=== PATIENT | male | born 1970 | race Caucasian/White ===

== ENCOUNTER 2016-06-24 19:01 | Emergency (ER) | payer MEDICAID ==
[~2016-06-24] VITALS: Ht 182.9 cm; Wt 95.3 kg
[~2016-06-24 19:01] MED LIST: BUPR-51 PO; CLON2TAB PO; LEVO125T PO
--- NOTE | 2016-06-24 19:04 | NUR ---
PT BIB SELF C/O CONGESTION X 5 DAYS. DENIES ANY PAIN . PT COUGHING OUT PHLEGM. PLACED ON MONITOR. VSS. AWAITING MD ORDER
--- NOTE | 2016-06-24 19:10 | NUR ---
AT BEDSIDE FOR EVAL
[2016-06-24] MEDS ORDERED: predniSONE 20 MG TABLET ONE (19:29)
[2016-06-24] MEDS ORDERED: AZITHROMYCIN 250 MG TABLET ONE (19:29)
[2016-06-24] MEDS ORDERED: ALBUTEROL FS 2.5 MG/3 ML VIAL.NEB NEB ONE (19:30)
[2016-06-24] MEDS ORDERED: AZITHROMYCIN 250 MG TABLET PO ONE (19:30)
[2016-06-24] MEDS ORDERED: IPRATROPIUM NEB FS 0.5 MG/2.5 ML AMPUL.NEB NEB ONE (19:30)
[2016-06-24] MEDS ORDERED: predniSONE 20 MG TABLET PO ONE (19:30)
--- NOTE | 2016-06-24 19:35 | NUR ---
XRAY AT BEDSIDE
--- NOTE | 2016-06-24 19:35 | NUR ---
CALLED RT FOR BREATHING TREATMENT
[2016-06-24] MEDS ORDERED: IPRATROPIUM NEB FS 0.5 MG/2.5 ML AMPUL.NEB ONE (20:00)
[2016-06-24] MEDS ORDERED: ALBUTEROL FS 2.5 MG/3 ML VIAL.NEB ONE (20:00)
--- NOTE | 2016-06-24 20:08 | NUR ---
rt at bedside
--- NOTE | 2016-06-24 20:43 | NUR ---
Patient discharged to home in stable condition. Written and verbal after care instructions given. Patient verbalizes understanding of instruction.
[2016-06-24 20:44] VITALS: BP 128/68
== END 2016-06-24 20:44 | disposition home or self-care (01) ==
LOC: ER 19:04
DX: H66.93 Otitis media, unspecified, bilateral (principal); J32.9 Chronic sinusitis, unspecified; F41.9 Anxiety disorder, unspecified; E03.9 Hypothyroidism, unspecified; J45.909 Unspecified asthma, uncomplicated; R05 Cough; F17.200 Nicotine dependence, unspecified, uncomplicated; F11.10 Opioid abuse, uncomplicated
CPT/HCPCS: 71010; 94640; 99283; A4606; J7512; Z7610

== ENCOUNTER 2016-08-01 02:19 | Emergency (ER) | payer MEDICAID ==
[~2016-08-01] VITALS: Ht 182.9 cm; Wt 97.5 kg
[2016-08-01 02:46] VITALS: BP 119/74
== END 2016-08-01 03:38 | disposition home or self-care (01) ==
LOC: ER 02:21
DX: J32.9 Chronic sinusitis, unspecified (principal); E03.9 Hypothyroidism, unspecified; F41.9 Anxiety disorder, unspecified; F17.210 Nicotine dependence, cigarettes, uncomplicated
CPT/HCPCS: 99283; A4606; Z7610

== ENCOUNTER 2017-01-14 07:37 | Emergency (ER) | payer MEDICAID ==
[~2017-01-14] VITALS: Ht 182.9 cm; Wt 104.3 kg
[2017-01-14 07:37] VITALS: BP 147/88
== END 2017-01-14 08:03 | disposition home or self-care (01) ==
LOC: ER 07:41
DX: L03.116 Cellulitis of left lower limb (principal); F41.9 Anxiety disorder, unspecified; E03.9 Hypothyroidism, unspecified; F17.200 Nicotine dependence, unspecified, uncomplicated; F15.10 Other stimulant abuse, uncomplicated; F14.10 Cocaine abuse, uncomplicated; F11.10 Opioid abuse, uncomplicated
CPT/HCPCS: 99283; A4606; Z7610

== ENCOUNTER 2017-01-26 09:00 | Emergency (ER) | payer MEDICAID ==
[~2017-01-26] VITALS: Ht 182.9 cm; Wt 104.3 kg
[2017-01-26 09:08] VITALS: BP 158/88
== END 2017-01-26 09:28 | disposition home or self-care (01) ==
LOC: ER 09:02
DX: L02.31 Cutaneous abscess of buttock (principal); E03.9 Hypothyroidism, unspecified; F19.90 Other psychoactive substance use, unspecified, uncomplicated; F41.9 Anxiety disorder, unspecified; F17.200 Nicotine dependence, unspecified, uncomplicated
CPT/HCPCS: 99283; A4606; Z7610

== ENCOUNTER 2017-03-16 11:39 | Emergency (ER) | payer BC, MEDICAID ==
[~2017-03-16] VITALS: Ht 182.9 cm; Wt 99.8 kg
[2017-03-16 11:49] VITALS: BP 129/69
[2017-03-16] MEDS ORDERED: SULFAMETH/TRIMETH 800/160 MG 1 UDTAB TABLET PO ONE ×2 (12:43→13:00)
[2017-03-16] MEDS ORDERED: CEPHALEXIN MONOHYDRATE 500 MG CAPSULE PO ONE ×2 (12:43→13:00)
== END 2017-03-16 12:51 | disposition home or self-care (01) ==
LOC: ER 11:48
DX: L03.317 Cellulitis of buttock (principal); F41.9 Anxiety disorder, unspecified; E03.9 Hypothyroidism, unspecified; F17.200 Nicotine dependence, unspecified, uncomplicated
CPT/HCPCS: A4606; Z7610

== ENCOUNTER 2017-11-26 17:27 | Emergency (ER) | payer BC, MEDICAID ==
[~2017-11-26] VITALS: Ht 182.9 cm; Wt 99.8 kg
[2017-11-26 17:45] VITALS: BP 141/90
[2017-11-26] MEDS ORDERED: LIDOCAINE 1% INJ 50 ML MDV IJ ONE (18:30)
== END 2017-11-26 18:57 | disposition home or self-care (01) ==
LOC: ER 17:29
DX: L02.413 Cutaneous abscess of right upper limb (principal); L03.113 Cellulitis of right upper limb; G40.909 Epilepsy, unspecified, not intractable, without status epilepticus; E03.9 Hypothyroidism, unspecified; F41.9 Anxiety disorder, unspecified; F17.200 Nicotine dependence, unspecified, uncomplicated; F14.10 Cocaine abuse, uncomplicated; F15.10 Other stimulant abuse, uncomplicated; F11.10 Opioid abuse, uncomplicated; Z86.19 Personal history of other infectious and parasitic diseases
CPT/HCPCS: 10060; 87070; 99283; 99406; A4606; A6402 ×2; A6407; Z7610

== ENCOUNTER 2018-03-04 17:02 | Emergency (ER) | payer BC ==
[~2018-03-04] VITALS: Ht 182.9 cm; Wt 102.1 kg
[2018-03-04 17:02] VITALS: BP 138/77
[2018-03-04] MEDS ORDERED: IV NS 0.9% 1,000 ML BAG IV ONE (17:30)
[2018-03-04] MEDS ORDERED: IBUPROFEN 600 MG TABLET PO ONE ×2 (17:30→18:20)
[2018-03-04] MEDS ORDERED: SULFAMETH/TRIMETH 800/160 MG 1 UDTAB TABLET PO ONE ×2 (18:30→18:40)
[2018-03-04] MEDS ORDERED: CEPHALEXIN MONOHYDRATE 500 MG CAPSULE PO ONE ×2 (18:30→18:40)
== END 2018-03-04 18:49 | disposition home or self-care (01) ==
LOC: ER 17:05
DX: L03.116 Cellulitis of left lower limb (principal); R56.9 Unspecified convulsions; F41.9 Anxiety disorder, unspecified; E03.9 Hypothyroidism, unspecified; F17.200 Nicotine dependence, unspecified, uncomplicated; F14.10 Cocaine abuse, uncomplicated; F11.10 Opioid abuse, uncomplicated; F15.10 Other stimulant abuse, uncomplicated
CPT/HCPCS: A4606; A6403; Z7610

== ENCOUNTER 2018-05-09 23:51 | Emergency (ER) | payer BC ==
[~2018-05-09] VITALS: Ht 180.3 cm; Wt 104.3 kg
[2018-05-10 00:41] VITALS: BP 117/75
--- NOTE | 2018-05-10 02:02 | NUR ---
PT BIBS. COMP OF "I THINK I WAS BIT BY A SPIDER ON MY ARMS" R+L EXTREMITY SWELLING NOTED. AOX4. -SOB. -N/V -ACUTE DISTRESS AT THIS TIME.
== END 2018-05-10 02:22 | disposition home or self-care (01) ==
LOC: ER 23:51
DX: L03.114 Cellulitis of left upper limb (principal); F11.10 Opioid abuse, uncomplicated; E03.9 Hypothyroidism, unspecified; R56.9 Unspecified convulsions; F41.9 Anxiety disorder, unspecified; F17.200 Nicotine dependence, unspecified, uncomplicated; F14.10 Cocaine abuse, uncomplicated; F15.10 Other stimulant abuse, uncomplicated
CPT/HCPCS: 99283; A4606

== ENCOUNTER → 2018-10-19 | Emergency (ER) | payer BC ==
--- NOTE | 2018-10-19 21:22 | NUR ---
CALLED PT IN WAITING ROOM. NO RESPONSE
--- NOTE | 2018-10-19 22:51 | NUR ---
CALLED PT IN WAITING ROOM. NO RESPONSE. WILL FOLLOW UP.
--- NOTE | 2018-10-19 23:23 | NUR ---
CALLED PT IN WAITING ROOM. NO RESPON.SE
== END | disposition left against medical advice (07) ==
LOC: ER 20:02
DX: Z53.21 Procedure and treatment not carried out due to patient leaving prior to being seen by health care provider (principal)

== ENCOUNTER 2018-11-26 03:02 | Emergency (ER) | payer BC ==
[~2018-11-26] VITALS: Ht 182.9 cm; Wt 99.8 kg
--- NOTE | 2018-11-26 03:04 | NUR ---
PT CALLED FOR TRIAGE, NO ANSWER.
--- NOTE | 2018-11-26 04:20 | NUR ---
TO BED 4 AMBULATORY C/O R DELTOID ABSCESS X2 DAYS S/P HEROIN. PT AAOX4 NO ACUTE DISTRESS NOTED, RESP EVEN AND UNLABORED. PENDING ER MD NAM.
--- NOTE | 2018-11-26 04:57 | NUR ---
ANA KIM AT BEDSIDE FOR I&D.
[2018-11-26] MEDS ORDERED: LIDOCAINE 1%-EPI 1:100,000 20 ML VIAL ONE (05:00)
[2018-11-26] MEDS ORDERED: SULFAMETH/TRIMETH 800/160 MG 1 UDTAB TABLET ONE (05:07)
[2018-11-26] MEDS ORDERED: CEPHALEXIN MONOHYDRATE 500 MG CAPSULE PO ONE ×2 (05:07→05:30)
[2018-11-26 05:25] VITALS: BP 127/68
--- NOTE | 2018-11-26 05:25 | NUR ---
Patient discharged to home in stable condition. Written and verbal after care instructions given. Patient verbalizes understanding of instruction. ambulatory with a steady gait
[2018-11-26] MEDS ORDERED: SULFAMETH/TRIMETH 800/160 MG 1 UDTAB TABLET PO ONE (05:30)
[2018-11-26] MEDS ORDERED: LIDOCAINE 1%-EPI 1:100,000 50 ML VIAL IJ ONE (05:30)
== END 2018-11-26 05:26 | disposition home or self-care (01) ==
LOC: ER 03:02
DX: L02.413 Cutaneous abscess of right upper limb (principal); F41.9 Anxiety disorder, unspecified; E03.9 Hypothyroidism, unspecified; F17.200 Nicotine dependence, unspecified, uncomplicated; Z79.899 Other long term (current) drug therapy
CPT/HCPCS: 10060; 99283; A6407; J3490 ×2

== ENCOUNTER 2018-11-28 04:12 | Emergency (ER) | payer BC ==
[~2018-11-28] VITALS: Ht 185.4 cm; Wt 98.9 kg
[~2018-11-28 04:12] MED LIST changes: -BUPR-51 PO
[2018-11-28 04:19] VITALS: BP 121/78
== END 2018-11-28 04:39 | disposition home or self-care (01) ==
LOC: ER 04:14
DX: L03.113 Cellulitis of right upper limb (principal); R56.9 Unspecified convulsions; F41.9 Anxiety disorder, unspecified; E03.9 Hypothyroidism, unspecified; F17.200 Nicotine dependence, unspecified, uncomplicated; F14.10 Cocaine abuse, uncomplicated; F15.10 Other stimulant abuse, uncomplicated; F11.10 Opioid abuse, uncomplicated

== ENCOUNTER 2019-01-05 20:53 | Emergency (ER) | payer BC ==
[~2019-01-05] VITALS: Ht 181.6 cm; Wt 102.1 kg
[2019-01-05 21:28] VITALS: BP 118/72
[2019-01-05] MEDS ORDERED: LIDOCAINE 1%-EPI 1:100,000 20 ML VIAL ONE (22:10)
[2019-01-05] MEDS ORDERED: LIDOCAINE 1%-EPI 1:100,000 20 ML VIAL TP ONE (22:30)
[2019-01-05] MEDS ORDERED: CLINDAMYCIN HCL 150 MG CAPSULE PO ONE ×2 (22:58→23:00)
--- NOTE | 2019-01-05 23:06 | NUR ---
Patient discharged to home in stable condition. Written and verbal after care instructions given. Patient verbalizes understanding of instruction. Pt ambulatory with a steady gait
== END 2019-01-05 23:07 | disposition home or self-care (01) ==
LOC: ER 20:56
DX: L02.415 Cutaneous abscess of right lower limb (principal); L03.115 Cellulitis of right lower limb; F19.10 Other psychoactive substance abuse, uncomplicated; F41.9 Anxiety disorder, unspecified; E03.9 Hypothyroidism, unspecified; F17.200 Nicotine dependence, unspecified, uncomplicated; Z79.899 Other long term (current) drug therapy
CPT/HCPCS: 10060; 87070; 99283; A6253; A6403; A6407; J3490

== ENCOUNTER 2019-03-31 18:37 | Emergency (ER) | payer BC ==
[~2019-03-31] VITALS: Ht 180.3 cm; Wt 112.0 kg
[2019-03-31 18:58] VITALS: BP 116/82
--- NOTE | 2019-03-31 18:59 | NUR ---
PT AAOX4. AMBULATORY. C/O L SIDE BUTTOCK AREA PAIN/SWELLING X 1 WEEK. WAS AT AN URGENT CARE WHICH WAS PRESCRIBED ANTIBIOTICS, TOOK ANTIBIOTICS, NO RELIEF. VSS.
--- NOTE | 2019-03-31 19:42 | NUR ---
PT STATED "NO ONE CAN GET AN IV STARTED ON ME" MD AWARE.
[2019-03-31] MEDS ORDERED: IV NS 0.9% 1,000 ML BAG IV ONE (20:00)
[2019-03-31] MEDS ORDERED: HYDROMORPHONE 1 MG/1 ML DISP.SYRIN IV ONE ×2 (20:00→22:00)
--- NOTE | 2019-03-31 20:06 | NUR ---
MID LINE BEING INSERTED.
--- NOTE | 2019-03-31 20:15 | NUR ---
R BRACHIAL 18G MID LINE.
[2019-03-31] MEDS ORDERED: HYDROMORPHONE 1 MG/1 ML DISP.SYRIN ONE ×2 (20:16→21:58)
[2019-03-31 20:28] LABS: BASOPHILS # (AUTO) 0.1 /CMM (0.0-0.2); BASOPHILS % (AUTO) 0.7 % (0.0-2.0); EOSINOPHILS % (AUTO) 2.8 % (0.0-6.0); HEMATOCRIT 33 % (39-51); HEMOGLOBIN 10.4 g/dL (13.5-17.5); LYMPHOCYTES # (AUTO) 0.9 /CMM (0.8-4.8); MEAN CORPUSCULAR HGB CONC 32 g/dl (31.0-36.0); MEAN CORPUSCULAR VOLUME 81 fL (80-96); MONOCYTES # (AUTO) 0.8 /CMM (0.1-1.30); MONOCYTES % (AUTO) 8.9 % (2.0-12.0); NEUTROPHILS # (AUTO) 7.4 /CMM (1.8-8.9); NEUTROPHILS % (AUTO) 77.6 % (43.0-81.0); PLATELET COUNT (AUTO) 305 /CMM (150-450); RED BLOOD CELL COUNT(AUTO) 4.02 MIL/uL (4.5-6.0); WHITE BLOOD COUNT (AUTO) 9.5 K/uL (4.3-11.0)
[2019-03-31 20:52] LABS: ALBUMIN 2.2 g/dL (3.4-5.0); BILIRUBIN,DIRECT 0.1 mg/dL (0.0-0.2); BILIRUBIN,TOTAL 0.4 mg/dL (0.2-1.0); CALCIUM, SERUM 8.1 mg/dL (8.5-10.1); CREATININE 0.9 mg/dL (0.6-1.3); POTASSIUM 3.9 mmol/L (3.5-5.1); TOTAL PROTEIN, SERUM 7.2 g/dL (6.4-8.2)
[2019-03-31] MEDS ORDERED: CT SWABBABLE VALVE TRANS SET 1 EA INFUS.SET MC ONE (21:06)
[2019-03-31] MEDS ORDERED: IOHEXOL-300 100 ML VIAL IV ONE (21:06)
[2019-03-31] MEDS ORDERED: IV NS 0.9% 250 ML IV ONE (21:07)
--- NOTE | 2019-03-31 21:15 | NUR ---
PT BROUGHT TO CT
--- NOTE | 2019-03-31 22:27 | NUR ---
TURNED IN MOVE SHEET, AWAITING CALL FROM INSURANCE REP. PER CAPPED TO [place] [facility]
[2019-03-31] MEDS ORDERED: VANCOMYCIN HCL 1 GM in IV D5W 260 ML IV ONE (22:30)
[2019-03-31] MEDS ORDERED: VANCOMYCIN 1 GM VIAL ONE (22:41)
--- NOTE | 2019-04-01 00:42 | NUR ---
PT ACCEPTED TO [facility] BY DR GOODE. # FOR REPORT [phone]
--- NOTE | 2019-04-01 00:51 | NUR ---
ETA [id number]
--- NOTE | 2019-04-01 00:51 | NUR ---
brenna eta is 01:15. trip # [id number], per AJ
--- NOTE | 2019-04-01 01:02 | NUR ---
REPORT GIVEN TO VERNON LIN FOR AMBER
--- NOTE | 2019-04-01 01:39 | NUR ---
REPORT GIVEN TO MOHAN SIMON UN[address]
== END 2019-04-01 02:09 | disposition short-term general hospital (02) ==
LOC: ER 18:43
DX: L02.31 Cutaneous abscess of buttock (principal); L03.317 Cellulitis of buttock; M79.5 Residual foreign body in soft tissue; F19.10 Other psychoactive substance abuse, uncomplicated; F11.10 Opioid abuse, uncomplicated; D64.9 Anemia, unspecified; R56.9 Unspecified convulsions; E03.9 Hypothyroidism, unspecified; Z79.899 Other long term (current) drug therapy
CPT/HCPCS: 36415; 71045; 72193; 80048; 80076; 85025; 85730; 93005; 96365; 96366; 96375; 96376; 99285; J1170; J3370; J7030; J7050; J7060; Q9967; 36569

== ENCOUNTER 2019-10-12 15:02 | Emergency (ER) | payer BC ==
[~2019-10-12] VITALS: Ht 182.9 cm; Wt 106.6 kg
[2019-10-12 15:11] VITALS: BP 131/72
[2019-10-12] MEDS ORDERED: CT SWABBABLE VALVE TRANS SET 1 EA INFUS.SET MC ONE (15:34)
[2019-10-12] MEDS ORDERED: IOHEXOL-300 100 ML VIAL IV ONE (15:34)
[2019-10-12] MEDS ORDERED: IV NS 0.9% 250 ML IV ONE (15:34)
[2019-10-12] MEDS ORDERED: CEPH-570 PO (16:00)
[2019-10-12] MEDS ORDERED: LOSA25TA27 PO (16:00)
[2019-10-12] MEDS ORDERED: FURO40TA5 PO (16:00)
[2019-10-12] MEDS ORDERED: FERR325T23 PO (16:00)
[2019-10-12 16:07] LABS: BASOPHILS % (AUTO) 0.4 % (0.0-2.0); EOSINOPHILS % (AUTO) 0.3 % (0.0-6.0); HEMATOCRIT 34 % (39-51); HEMOGLOBIN 10.9 g/dL (13.5-17.5); LYMPHOCYTES % (AUTO) 10.2 % (20.0-44.0); MEAN CORPUSCULAR HGB CONC 32 g/dl (31.0-36.0); MEAN CORPUSCULAR VOLUME 80 fL (80-96); MONOCYTES # (AUTO) 0.4 /CMM (0.1-1.30); MONOCYTES % (AUTO) 4.3 % (2.0-12.0); NEUTROPHILS # (AUTO) 8.6 /CMM (1.8-8.9); NEUTROPHILS % (AUTO) 84.8 % (43.0-81.0); PLATELET COUNT (AUTO) 365 /CMM (150-450); RED BLOOD CELL COUNT(AUTO) 4.32 MIL/uL (4.5-6.0); WHITE BLOOD COUNT (AUTO) 10.1 K/uL (4.3-11.0)
[2019-10-12] MEDS: IV NS 0.9% 1,000 ML BAG IV ONE (16:07)
[2019-10-12] MEDS: VANCOMYCIN 1 GM in IV D5W 250 ML IV ONE (16:08)
[2019-10-12] MEDS: PIPERACILLIN /TAZOBACTAM 3.375 G in IV D5W 50 ML IV ONE (16:08)
--- NOTE | 2019-10-12 16:10 | NUR ---
PT C/O L HIP AREA CELLULITIS. AAOX4, VSS. RR EVEN & UNALBORED. DENIES CP, SOB, DIZZINESS, N/V/D AT THIS TIME. PT SEEN & EVAL'D BY DR. ZHANG. MEDICATED ORDERED, PT MARTA WELL. WILL CONT TO MONITOR.
[2019-10-12 16:39] LABS: CALCIUM, SERUM 8.9 mg/dL (8.5-10.1); CREATININE 1.2 mg/dL (0.6-1.3); POTASSIUM 3.9 mmol/L (3.5-5.1)
[2019-10-12 16:44] LABS: ALBUMIN 2.7 g/dL (3.4-5.0); BILIRUBIN,DIRECT 0.2 mg/dL (0.0-0.2); BILIRUBIN,TOTAL 0.5 mg/dL (0.2-1.0); TOTAL PROTEIN, SERUM 8.5 g/dL (6.4-8.2)
--- NOTE | 2019-10-12 18:19 | NUR ---
PT SIGNED AMA FORM. Patient discharged to home in stable condition. Written and verbal after care instructions given. Patient verbalizes understanding of instruction. IV removed. Catheter intact and site benign. Pressure and 4x4 applied to site. No bleeding noted.
== END 2019-10-12 18:21 | disposition left against medical advice (07) ==
LOC: ER 15:03
DX: L02.416 Cutaneous abscess of left lower limb (principal); L03.116 Cellulitis of left lower limb; R56.9 Unspecified convulsions; E03.9 Hypothyroidism, unspecified; Z53.9 Procedure and treatment not carried out, unspecified reason; Z98.890 Other specified postprocedural states
CPT/HCPCS: 36415; 73701; 80048; 80076; 83605; 85025; 85730; 87040 ×2; 96365; 96368; 99285; J2543; J3370; J7030; J7050; J7060; Q9967

== ENCOUNTER 2020-01-07 18:21 | Emergency (ER) | payer BC ==
[~2020-01-07] VITALS: Ht 185.4 cm; Wt 104.3 kg
[~2020-01-07 18:21] MED LIST changes: +CEPH-570 PO; +FERR325T23 PO; +FURO40TA5 PO; +LOSA25TA27 PO
[2020-01-07 18:55] VITALS: BP 135/81
== END 2020-01-07 19:31 | disposition home or self-care (01) ==
LOC: ER 18:24
DX: L03.113 Cellulitis of right upper limb (principal); K02.9 Dental caries, unspecified; F41.9 Anxiety disorder, unspecified; E03.9 Hypothyroidism, unspecified; F17.200 Nicotine dependence, unspecified, uncomplicated; Z79.899 Other long term (current) drug therapy; W57.XXXA Bitten or stung by nonvenomous insect and other nonvenomous arthropods, initial encounter; Y93.89 Activity, other specified; Y92.89 Other specified places as the place of occurrence of the external cause; Y99.8 Other external cause status

== ENCOUNTER 2020-09-26 02:44 | Emergency (ER) | payer MEDICAID ==
[~2020-09-26] VITALS: Ht 182.9 cm; Wt 83.9 kg
--- NOTE | 2020-09-26 02:55 | NUR ---
PATIENT BIBS FOR C/O WORSENING RIGHT LOWER TOOTH PAIN AND SWELLING X 1 WK. PATIENT A/O X 4, RR EVEN AND UNLABORED, NO SOB NOTED, PATIENT VSS. WILL CONTINUE TO MONITOR.
[2020-09-26] MEDS ORDERED: PENICILLIN G BENZATHINE 2.4 MMU/4 ML ML IM ONE ×2 (03:43→04:00)
[2020-09-26] MEDS ORDERED: HYDROCODONE/APAP 10/325MG TABLET ONE (03:43)
[2020-09-26] MEDS ORDERED: HYDROCODONE/APAP 10/325MG TABLET PO ONE (04:00)
--- NOTE | 2020-09-26 04:15 | NUR ---
Patient discharged to home in stable condition. Written and verbal after care instructions given. Patient verbalizes understanding of instruction.
[2020-09-26 04:51] VITALS: BP 136/72
== END 2020-09-26 04:52 | disposition home or self-care (01) ==
LOC: ER 02:44
DX: K08.89 Other specified disorders of teeth and supporting structures (principal); F17.210 Nicotine dependence, cigarettes, uncomplicated; I10 Essential (primary) hypertension; D64.9 Anemia, unspecified; F41.9 Anxiety disorder, unspecified; E03.9 Hypothyroidism, unspecified; Z79.899 Other long term (current) drug therapy
CPT/HCPCS: 96372; 99283; 99406; J0558

== ENCOUNTER 2020-09-29 01:02 | Emergency (ER) | payer MEDICAID ==
[~2020-09-29] VITALS: Ht 182.9 cm; Wt 83.9 kg
[2020-09-29 01:02] VITALS: BP 73/20
[2020-09-29] MEDS ORDERED: AMOX-430 PO (01:40)
[2020-09-29] MEDS ORDERED: KETOROLAC TROMETHAMINE INJ 30 MG/ML VIAL ONE (01:47)
--- NOTE | 2020-09-29 01:51 | NUR ---
Patient discharged to home in stable condition. Written and verbal after care instructions given. Patient verbalizes understanding of instruction.
[2020-09-29] MEDS: KETOROLAC TROMETHAMINE INJ 60 MG/2 ML VIAL IM ONE (01:55)
== END 2020-09-29 02:02 | disposition home or self-care (01) ==
LOC: ER 01:05
DX: K08.89 Other specified disorders of teeth and supporting structures (principal); I10 Essential (primary) hypertension; D64.9 Anemia, unspecified; F41.9 Anxiety disorder, unspecified; E03.9 Hypothyroidism, unspecified; F17.200 Nicotine dependence, unspecified, uncomplicated; Z79.899 Other long term (current) drug therapy
CPT/HCPCS: 96372; 99283; J1885

== ENCOUNTER 2021-03-20 03:31 | Emergency (ER) | payer MEDICAID ==
[~2021-03-20] VITALS: Ht 182.9 cm; Wt 83.9 kg
[~2021-03-20 03:31] MED LIST changes: +AMOX-430 PO
[2021-03-20 03:56] VITALS: BP 120/72
[2021-03-20] MEDS ORDERED: CLIN300C12 PO (04:02)
[2021-03-20] MEDS ORDERED: CLINDAMYCIN HCL 150 MG CAPSULE ONE (04:08)
[2021-03-20] MEDS ORDERED: CLINDAMYCIN HCL 150 MG CAPSULE PO ONE (04:30)
== END 2021-03-20 04:18 | disposition home or self-care (01) ==
LOC: ER 03:37
DX: L02.31 Cutaneous abscess of buttock (principal); I10 Essential (primary) hypertension; D64.9 Anemia, unspecified; E03.9 Hypothyroidism, unspecified; Z79.899 Other long term (current) drug therapy

== ENCOUNTER 2021-08-01 21:40 | Emergency (ER) | payer MEDICAID ==
[~2021-08-01] VITALS: Ht 182.9 cm; Wt 86.2 kg
[~2021-08-01 21:40] MED LIST changes: +CLIN300C12 PO
[2021-08-01 22:14] VITALS: BP 134/81
[2021-08-01] MEDS ORDERED: diphenhydrAMINE HCL 50 MG CAPSULE ONE (22:58)
[2021-08-01] MEDS ORDERED: diphenhydrAMINE HCL 25 MG CAPSULE PO ONE (23:00)
--- NOTE | 2021-08-01 23:08 | NUR ---
Patient discharged to home in stable condition. Written and verbal after care instructions given. Patient verbalizes understanding of instruction.
== END 2021-08-01 23:10 | disposition home or self-care (01) ==
LOC: ER 21:51
DX: S50.861A Insect bite (nonvenomous) of right forearm, initial encounter (principal); E86.0 Dehydration; F41.9 Anxiety disorder, unspecified; I10 Essential (primary) hypertension; D64.9 Anemia, unspecified; E03.9 Hypothyroidism, unspecified; Z79.899 Other long term (current) drug therapy; W57.XXXA Bitten or stung by nonvenomous insect and other nonvenomous arthropods, initial encounter; Y93.89 Activity, other specified; Y92.89 Other specified places as the place of occurrence of the external cause; Y99.8 Other external cause status
CPT/HCPCS: 99282; Q0163

== ENCOUNTER 2022-02-03 01:19 | Emergency (ER) | payer BC, MEDICAID ==
[~2022-02-03] VITALS: Ht 182.9 cm; Wt 81.2 kg
[2022-02-03 01:24] VITALS: BP 134/72
== END 2022-02-03 01:36 | disposition home or self-care (01) ==
LOC: ER 01:20
DX: Z48.00 Encounter for change or removal of nonsurgical wound dressing (principal); I10 Essential (primary) hypertension; E03.9 Hypothyroidism, unspecified; Z79.899 Other long term (current) drug therapy

== ENCOUNTER 2022-02-12 07:56 | Emergency (ER) | payer BC ==
[~2022-02-12] VITALS: Ht 182.9 cm; Wt 89.4 kg
--- NOTE | 2022-02-12 08:06 | NUR ---
BIBS W/ C/O RIGHT THIGH AREA PAIN AND SWELLING FROM ABSCESS X2 DAYS. TO ER BED 1.
[2022-02-12] MEDS ORDERED: LIDOCAINE 0.5%-EPI 1:200,000 50 ML VIAL ONE (08:34)
[2022-02-12] MEDS ORDERED: LIDOCAINE 2%-EPI 1:100,000 30 ML VIAL TP ONE (09:00)
--- NOTE | 2022-02-12 09:05 | NUR ---
AT BEDSIDE FOR I&D
[2022-02-12 09:16] VITALS: BP 124/72
[2022-02-12] MEDS ORDERED: CEPH500C2 PO (09:33)
[2022-02-12] MEDS ORDERED: SULF1TAB48 PO (09:33)
[2022-02-12] MEDS ORDERED: CLIN300C12 PO (09:44)
--- NOTE | 2022-02-12 09:47 | NUR ---
WOUND DRESSING DONE ON RLE.
--- NOTE | 2022-02-12 09:49 | NUR ---
Patient discharged to home in stable condition. Written and verbal after care instructions given. Patient verbalizes understanding of instruction.
== END 2022-02-12 09:56 | disposition home or self-care (01) ==
LOC: ER 08:03
DX: L02.415 Cutaneous abscess of right lower limb (principal); I10 Essential (primary) hypertension; E03.9 Hypothyroidism, unspecified; Z79.899 Other long term (current) drug therapy
CPT/HCPCS: 99284; 10060; 76882; J3490; A6407

== ENCOUNTER 2022-02-16 02:23 | Emergency (ER) | payer BC ==
[~2022-02-16] VITALS: Ht 182.9 cm; Wt 90.7 kg
[2022-02-16 02:59] VITALS: BP 135/81
--- NOTE | 2022-02-16 04:31 | NUR ---
Patient discharged to home in stable condition. Written and verbal after care instructions given. Patient verbalizes understanding of instruction.
== END 2022-02-16 04:40 | disposition home or self-care (01) ==
LOC: ER 02:34
DX: Z48.00 Encounter for change or removal of nonsurgical wound dressing (principal); L02.415 Cutaneous abscess of right lower limb; I10 Essential (primary) hypertension; E03.9 Hypothyroidism, unspecified; Z79.899 Other long term (current) drug therapy

== ENCOUNTER 2022-07-14 20:17 | Emergency (ER) | payer BC, MEDICAID ==
[~2022-07-14] VITALS: Ht 177.8 cm; Wt 86.2 kg
--- NOTE | 2022-07-14 23:29 | NUR ---
BIBSELF C/O HEADACHE AND FEELING HOT. PLACED IN BED 11 ON MONITOR AND PULSE OX. AWAITING MD FOR EVAL AND ORDERS.
[2022-07-14] MEDS ORDERED: ACETAMINOPHEN ES 500 MG TABLET ONE (23:54)
[2022-07-15] MEDS ORDERED: IV NS 0.9% 1,000 ML IV ONE
[2022-07-15] MEDS ORDERED: ACETAMINOPHEN ES 500 MG TABLET PO ONE
--- NOTE | 2022-07-15 00:01 | NUR ---
RAPID STREP COLLECTED AND SENT TO LAB.
[2022-07-15] MEDS ORDERED: CT SWABBABLE VALVE TRANS SET 1 EA INFUS.SET MC ONE (00:22)
[2022-07-15] MEDS ORDERED: IOHEXOL-300 100 ML VIAL IV ONE (00:22)
[2022-07-15] MEDS ORDERED: IV NS 0.9% 250 ML IV ONE (00:22)
[2022-07-15 00:47] LABS: BASOPHILS % (AUTO) 0.1 % (0.0-2.0); HEMATOCRIT 35 % (39-51); HEMOGLOBIN 11.3 g/dL (13.5-17.5); LYMPHOCYTES % (AUTO) 8.9 % (20.0-44.0); MEAN CORPUSCULAR HGB CONC 32 g/dl (31.0-36.0); MEAN CORPUSCULAR VOLUME 82 fL (80-96); MONOCYTES # (AUTO) 1.1 K/uL (0.1-1.30); MONOCYTES % (AUTO) 10.1 % (2.0-12.0); NEUTROPHILS # (AUTO) 8.8 K/uL (1.8-8.9); NEUTROPHILS % (AUTO) 80.9 % (43.0-81.0); PLATELET COUNT (AUTO) 226 K/uL (150-450); RED BLOOD CELL COUNT(AUTO) 4.28 MIL/uL (4.5-6.0); WHITE BLOOD COUNT (AUTO) 10.8 K/uL (4.3-11.0)
[2022-07-15 01:05] LABS: CALCIUM, SERUM 8.3 mg/dL (8.5-10.1); CREATININE 1.4 mg/dL (0.6-1.3); POTASSIUM 3.9 mmol/L (3.5-5.1)
[2022-07-15 01:20] LABS: ALBUMIN 2.8 g/dL (3.4-5.0); BILIRUBIN,TOTAL 0.6 mg/dL (0.2-1.0); MAGNESIUM 1.6 mg/dL (1.8-2.4); TOTAL PROTEIN, SERUM 8.5 g/dL (6.4-8.2)
--- NOTE | 2022-07-15 04:08 | NUR ---
COVID SWAB TEST DONE AND SENT TO LAB.
[2022-07-15] MEDS ORDERED: PIPERACILLIN /TAZOBACTAM 3.375 G VIAL IV ONE (04:13)
[2022-07-15] MEDS ORDERED: KETOROLAC TROMETHAMINE 15 MG/ML VIAL ONE (04:13)
[2022-07-15] MEDS ORDERED: DEXAMETHASONE SOD PHOSPHATE 10 MG/ML VIAL ONE (04:13)
[2022-07-15] MEDS ORDERED: PIPERACILLIN /TAZOBACTAM 3.375 G in IV D5W 50 ML IV ONE (04:30)
[2022-07-15] MEDS ORDERED: KETOROLAC TROMETHAMINE INJ 30 MG/ML VIAL IV ONE (04:30)
[2022-07-15] MEDS ORDERED: DEXAMETHASONE SOD PHOSPHATE 10 MG/ML VIAL IV ONE (04:30)
--- NOTE | 2022-07-15 08:05 | NUR ---
PATIENT PULLED OUT IV LINE, ORDER PLACED FOR MIDLINE INSERTION
--- NOTE | 2022-07-15 08:20 | NUR ---
Warehouse Technician Fozia [phone]. Requesting Clinicals
--- NOTE | 2022-07-15 08:57 | NUR ---
DANNY WILLIAMSON [phone] CALLED PT LOOKING AT GOING TO [place].
[2022-07-15] MEDS ORDERED: LEVOTHYROXINE SODIUM 25 MCG TABLET ONE (10:21)
[2022-07-15] MEDS ORDERED: LEVOTHYROXINE SODIUM 100 MCG TABLET ONE (10:21)
[2022-07-15] MEDS ORDERED: LEVOTHYROXINE SODIUM 75 MCG TABLET PO SCH (10:30)
--- NOTE | 2022-07-15 10:55 | NUR ---
PT ACCEPTED TO [facility] ROOM [address] [place]. PLEASE CALL [phone] FOR REPORT. TRANSPORT WILL BE WITH [facility] ETA 1130 PER DANNY.
--- NOTE | 2022-07-15 11:25 | NUR ---
Report given to DELIA Guerra
--- NOTE | 2022-07-15 11:37 | NUR ---
Radiology called for CD
[2022-07-15 11:59] VITALS: BP 105/60
== END 2022-07-15 12:00 | disposition short-term general hospital (02) ==
LOC: ER 20:18
DX: J39.0 Retropharyngeal and parapharyngeal abscess (principal); K12.2 Cellulitis and abscess of mouth; E86.0 Dehydration; I10 Essential (primary) hypertension; J44.9 Chronic obstructive pulmonary disease, unspecified; D64.9 Anemia, unspecified; E03.9 Hypothyroidism, unspecified; Z79.899 Other long term (current) drug therapy; Z20.822 Contact with and (suspected) exposure to COVID-19
CPT/HCPCS: 70491; 99285; 36415; 96365; 96375; 96361; 87426; 85025; 87040 ×2; 83605; 83735; 87880; 80053; 36410; J1100; J2543 ×2; J7060; J7030; J7050; Q9967; J1885; C9803; 86403-TC

== ENCOUNTER 2022-09-09 04:29 | Emergency (ER) | payer MEDICAID ==
[~2022-09-09] VITALS: Ht 182.9 cm; Wt 93.0 kg
[2022-09-09 04:55] VITALS: BP 122/75; TEMP 97.9
[2022-09-09] MEDS ORDERED: CLIN150C16 PO (04:58)
[2022-09-09] MEDS ORDERED: CLINDAMYCIN HCL 150 MG CAPSULE PO ONE (05:00)
--- NOTE | 2022-09-09 05:00 | NUR ---
CC OF LEFT ARM SWELLING WITH PAIN. PT IS HEROIN INJ USER. CANNOT REMEMBER IF HE INJECTED ON HIS LEFT ARM. PATIENT IS AOX4. UNKEMPT, ABLE TO MAKE NEEDS KNOWN.
[2022-09-09] MEDS ORDERED: CLINDAMYCIN HCL 150 MG CAPSULE ONE (05:02)
--- NOTE | 2022-09-09 05:02 | NUR ---
SEEN BY DR POWERS, MANUAL ANNMARIE PERFORM ON LEFT ARM
--- NOTE | 2022-09-09 05:09 | NUR ---
SURGICAL MARKER APPLIED TO AFFECTED ARM.
--- NOTE | 2022-09-09 05:10 | NUR ---
Patient discharged to home in stable condition. Written and verbal after care instructions given. Patient verbalizes understanding of instruction.
== END 2022-09-09 05:10 | disposition home or self-care (01) ==
LOC: ER 04:29
DX: L03.114 Cellulitis of left upper limb (principal); I10 Essential (primary) hypertension; J44.9 Chronic obstructive pulmonary disease, unspecified; D64.9 Anemia, unspecified; Z79.899 Other long term (current) drug therapy

== ENCOUNTER 2023-01-04 20:28 | Emergency (ER) | payer MEDICAID ==
[~2023-01-04] VITALS: Ht 182.9 cm; Wt 95.3 kg
[~2023-01-04 20:28] MED LIST changes: +CLIN150C16 PO
[2023-01-04 21:54] LABS: BASOPHILS % (AUTO) 0.4 % (0.0-2.0); EOSINOPHILS # (AUTO) 0.1 K/uL (0.0-0.7); EOSINOPHILS % (AUTO) 1.6 % (0.0-6.0); HEMATOCRIT 35 % (39-51); HEMOGLOBIN 11.1 g/dL (13.5-17.5); LYMPHOCYTES # (AUTO) 1.6 K/uL (0.8-4.8); LYMPHOCYTES % (AUTO) 24.4 % (20.0-44.0); MEAN CORPUSCULAR HEMOGLOBIN 27 PG (26.0-33.0); MEAN CORPUSCULAR HGB CONC 32 g/dl (31.0-36.0); MEAN CORPUSCULAR VOLUME 83 fL (80-96); MONOCYTES # (AUTO) 0.8 K/uL (0.1-1.30); MONOCYTES % (AUTO) 11.3 % (2.0-12.0); NEUTROPHILS # (AUTO) 4.2 K/uL (1.8-8.9); NEUTROPHILS % (AUTO) 62.3 % (43.0-81.0); PLATELET COUNT (AUTO) 274 K/uL (150-450); RED BLOOD CELL COUNT(AUTO) 4.17 MIL/uL (4.5-6.0); RED CELL DISTRIBUTION WIDTH 15.4 % (11.5-15.0); WHITE BLOOD COUNT (AUTO) 6.7 K/uL (4.3-11.0)
[2023-01-04 22:01] LABS: CALCIUM, SERUM 8.5 mg/dL (8.5-10.1); CARBON DIOXIDE 29 mmol/L (21-32); CHLORIDE 107 mmol/L (98-107); CREATININE 1.5 mg/dL (0.6-1.3); GLUCOSE 85 mg/dL (74-106); POTASSIUM 3.8 mmol/L (3.5-5.1); SODIUM SERUM 143 mmol/L (136-145); UREA NITROGEN, BLOOD 30 mg/dL (7-18)
[2023-01-04 22:07] LABS: ALANINE AMINOTRANSFERASE 40 U/L (12-78); ALBUMIN 2.8 g/dL (3.4-5.0); ALCOHOL, BLOOD < 3 mg/dL (0-10); ALKALINE PHOSPHATASE 53 U/L (46-116); ASPARTATE AMINOTRANSFERASE 32 U/L (15-37); BILIRUBIN,DIRECT 0.2 mg/dL (0.0-0.2); BILIRUBIN,TOTAL 0.5 mg/dL (0.2-1.0); TOTAL PROTEIN, SERUM 8.4 g/dL (6.4-8.2)
[2023-01-04] MEDS ORDERED: IV NS 0.9% 1,000 ML IV ONE (22:30)
[2023-01-04 23:11] VITALS: BP 116/88; TEMP 98; O2SAT 98
== END 2023-01-04 23:11 | disposition home or self-care (01) ==
LOC: ER 20:33
DX: R55 Syncope and collapse (principal); F41.9 Anxiety disorder, unspecified; E86.0 Dehydration; I10 Essential (primary) hypertension; J44.9 Chronic obstructive pulmonary disease, unspecified; E03.9 Hypothyroidism, unspecified
CPT/HCPCS: 99284; 96360; 70450; 85025; 80048; 80076; 80320; 80307; J7030; 36415; G0480

== ENCOUNTER 2024-04-03 07:16 | Emergency (ER) | payer MEDICAID ==
[~2024-04-03] VITALS: Ht 182.9 cm; Wt 91.6 kg
[2024-04-03] MEDS ORDERED: LIDOCAINE HCL/MPF 1% 30 ML VIAL IJ ONE (11:41)
[2024-04-03 11:42] VITALS: BP 137/80; TEMP 98.7; O2SAT 97
[2024-04-03] MEDS ORDERED: CLIN300C12 PO (12:05)
== END 2024-04-03 12:10 | disposition home or self-care (01) ==
LOC: ER 07:16
DX: L02.415 Cutaneous abscess of right lower limb (principal); E03.9 Hypothyroidism, unspecified; I10 Essential (primary) hypertension; J44.9 Chronic obstructive pulmonary disease, unspecified; F19.10 Other psychoactive substance abuse, uncomplicated; Z79.890 Hormone replacement therapy; Z79.899 Other long term (current) drug therapy; Z86.19 Personal history of other infectious and parasitic diseases; Z88.1 Allergy status to other antibiotic agents; Z88.2 Allergy status to sulfonamides; Z86.69 Personal history of other diseases of the nervous system and sense organs
CPT/HCPCS: 99283; 10060; A6403; A6407; J3490